=== PATIENT | female | born 1985 | race Caucasian/White ===

== ENCOUNTER 2017-08-05 19:38 | Emergency (ER) | payer OTHER ==
--- NOTE | 2017-08-05 20:35 | UC ---
Complaint Female HPI - HPI Summary HPI Summary: 32 yo female with ext genital pain and dysuria x 1 days feels similar to when she had trich see denies vad d/c or itch no back or abd pain - History Of Current Complaint Chief Complaint: UCGU Stated Complaint: UTI Hx Obtained From: Patient Hx Last Menstrual Period: 07/12/17 Onset/Duration: Gradual Onset, Lasting Hours Timing: Constant Severity Initially: Moderate Severity Currently: Moderate Pain Intensity: 4 Pain Scale Used: 0-10 Numeric Character: Burning Aggravating Factor(s): Urination Associated Signs And Symptoms: Positive: Negative - Allergies/Home Medications Allergies/Adverse Reactions: Allergies Allergy/AdvReac Type Severity Reaction Status Date / Time Ibuprofen Allergy Severe Anaphylatic Verified 08/05/17 19:54 Shock Naproxen Allergy Severe Anaphylatic Verified 08/05/17 19:54 Shock Home Medications: Home Medications Multiple Vitamins W/ Minerals [Multivitamin Adults] 1 tab PO DAILY 08/05/17 [ History Confirmed 08/05/17] Verapamil TAB* [Calan TAB*] 80 mg PO DAILY 08/05/17 [History Confirmed 08/05/17] tiZANidine TAB* [Zanaflex TAB*] 2 mg PO DAILY 08/05/17 [History Confirmed ] PMH/Surg Hx/FS Hx/Imm Hx Previously Healthy: Yes Neurological History: Migraine - Surgical History Surgical History: Yes Surgery Procedure, Year, and Place: TONSILLECTOMY, 2 RIGHT FOOT SURGERIES, RIGHT KNEE SURGERY, BREAST REDUCTION, CANCEROUS CELLS REMOVED FROM CERVIX - Social History Alcohol Use: Occasionally Substance Use Type: None Smoking Status (MU): Never Smoked Tobacco Review of Systems Constitutional: Negative Skin: Negative Eyes: Negative ENT: Negative Respiratory: Negative Cardiovascular: Negative Gastrointestinal: Negative Genitourinary: Dysuria, Vaginal/Penile Burning Motor: Negative Neurovascular: Negative Musculoskeletal: Negative Neurological: Negative Psychological: Negative Is Patient Immunocompromised?: No All Other Systems Reviewed And Are Negative: Yes Physical Exam Triage Information Reviewed: Yes Appearance: Well-Appearing, No Pain Distress, Well-Nourished Vital Signs: Initial Vital Signs Temp 99.0 F 08/05/17 19:49 Pulse 85 08/05/17 19:49 Resp 16 08/05/17 19:49 BP 135/79 08/05/17 19:49 Pulse Ox 100 08/05/17 19:49 Vital Signs Reviewed: Yes Eyes: Positive: Conjunctiva Clear ENT: Positive: Hearing grossly normal. Negative: Nasal drainage, TMs normal, Trismus, Muffled voice, Hoarse voice Respiratory: Positive: Lungs clear, Normal breath sounds, No respiratory distress, No accessory muscle use Cardiovascular: Positive: RRR, No Murmur Abdomen Description: Positive: Nontender, No Organomegaly, Other: - ext genitalia-normal, vagina-scant whitish d/c, cx- not inflammed no CMT, uterus not tender, adenexa not tender. Negative: CVA Tenderness (R), CVA Tenderness (L ), Distended, Guarding Bowel Sounds: Positive: Present Musculoskeletal: Positive: ROM Intact, No Edema Neurological: Positive: Alert Psychological Exam: Normal Skin Exam: Normal Complaint Female Dx - Differential Dx/Diagnosis Provider Diagnoses: dysuria of uncertain cause Discharge - Discharge Plan Condition: Stable Disposition: HOME Prescriptions: Fluconazole 150 MG (NF) [Diflucan 150 mg (NF)] 150 mg PO ONCE #1 tab Metronidazole [Flagyl 500 MG TAB] 500 mg PO BID #14 tab Phenazopyridine TAB* [Pyridium TAB*] 100 mg PO TID #6 tab Patient Education Materials: Dysuria (ED) Referrals: No Primary Care Phys,NOPCP [Primary Care Provider] - Additional Instructions: I am unsure of the cause of your symptoms tests are pending recheck for new or worsening symptoms see your daycare assistant next week if not better
[2017-08-05] MEDS ORDERED: metroNIDAZOLE TAB* 250 MG PO ONE (21:05)
[2017-08-05] MEDS ORDERED: Phenazopyridine TAB* 100 MG PO ONE (21:06)
== END 2017-08-05 21:29 | disposition home or self-care (01) ==
LOC: UCEAST 19:38
DX: R30.0 Dysuria (principal); Z72.89 Other problems related to lifestyle
CPT/HCPCS: 81003; 81025; 87480; 87491; 87510; 87591; 87661; 99203; A9270-GY; G0463

== ENCOUNTER 2017-09-19 17:28 | Emergency (ER) | payer OTHER ==
[2017-09-19 17:44] VITALS: BP 138/77
--- NOTE | 2017-09-19 17:47 | UC ---
Palpitation/Dysrhythmia HP - HPI Summary HPI Summary: YESTERDAY AFTERNOON WHILE LAYING ON THE COUCH HAD SUDDEN ONSET OF RACING HEART BEAT AND TIGHT BAND LIKE CHEST PAIN. "FELT LIKE SOMEONE WAS STANDING ON MY CHEST ". PALPITATIONS LASTED ABOUT 30 MINUTEES. CP LASTED ABOUT AN HOUR. TODAY FEELS GENERAL SENSE OF MALAISE AND PERSISTENT SLIGHT DISCOMFORT IN HER CHEST. ALSOI REPORTS ABOUT A WEEK OF LEFT FLANK/SIDE PAIN. TODAY HAD ONSET OF BRBPR. NO PAIN. TAKES A MINIMUM OF 6 EXCEDRIN TABS PER DAY FOR MIGRAINES AND HAS DONE THIS FOR YEARS. DENIES, SOB, NAUSEA, SWEATS. - History of Current Complaint Chief Complaint: UCCardiac Stated Complaint: RACING HEART,BACK,ABD PAIN,BLOOD IN STOOL Time Seen by Provider: 09/19/17 17:42 Hx Obtained From: Patient Hx Last Menstrual Period: 09/11/17 Onset/Duration: Sudden Onset, Lasting Hours, Still Present Severity Initially: Moderate Severity Currently: Moderate Pain Intensity: 6 Pain Scale Used: 0-10 Numeric Character: Fast Aggravating Factor(s): Nothing Associated Signs & Symptoms: Positive: Chest Pain. Negative: Lightheadedness, Dizzy, Syncope, Shortness of Breath, Diaphoresis, Nausea - Allergy/Home Medications Allergies/Adverse Reactions: Allergies Allergy/AdvReac Type Severity Reaction Status Date / Time naproxen Allergy Severe ANAPHYLAXIS Verified 09/19/17 17:45 ibuprofen Allergy ANAPHYLAXIS Verified 09/19/17 17:45 PMH/Surg Hx/FS Hx/Imm Hx Previously Healthy: Yes Neurological History: Migraine Cancer History: Cervical Cancer - Surgical History Surgical History: Yes Surgery Procedure, Year, and Place: TONSILLECTOMY, 2 RIGHT FOOT SURGERIES, RIGHT KNEE SURGERY, BREAST REDUCTION, CANCEROUS CELLS REMOVED FROM CERVIX - Family History Known Family History: Positive: Cardiac Disease, Hypertension, Diabetes - Social History Alcohol Use: Occasionally Substance Use Type: None Smoking Status (MU): Never Smoked Tobacco Review of Systems Constitutional: Other - MALAISE Respiratory: Negative Cardiovascular: Palpitations, Chest Pain Gastrointestinal: Negative All Other Systems Reviewed And Are Negative: Yes Physical Exam Triage Information Reviewed: Yes Appearance: Well-Appearing, No Pain Distress, Well-Nourished Vital Signs: Initial Vital Signs Temp 98.6 F 09/19/17 17:38 Pulse 94 09/19/17 17:38 Resp 17 09/19/17 17:38 BP 138/77 09/19/17 17:38 Pulse Ox 96 09/19/17 17:38 Vital Signs Reviewed: Yes Eyes: Positive: Conjunctiva Clear ENT: Positive: Hearing grossly normal Neck: Positive: Supple Respiratory Exam: Normal Cardiovascular Exam: Normal Abdomen Description: Positive: Soft Musculoskeletal: Positive: No Edema Neurological: Positive: Alert Psychological: Positive: Age Appropriate Behavior Skin: Negative: rashes Diagnostics - EKG Cardiac Rate: NL - 88 BPM Cardiac Rhythm: Sinus: Normal Ectopy: None ST Segment: Normal Palpitations Course/Dx - Course Course Of Treatment: TO [facility] BY PRIVATE CAR. PT OFFERED TRANSPORT BY AMBULANCE BUT DECLINES. ADVISED THAT BY NOT TRAVELING IN A MONITORED SETTING SHE COULD BE RISKING WORSENING OF HER CONDITION THAT COULD POSE A THREAT TO HER LIFE, HEALTH AND MEDICAL SAFETY. SHE VERBALIZES UNDERSTANDING AND CONTINUES TO DECLINE AMBULANCE TRANSFER. - Differential Dx/Diagnosis Provider Diagnoses: 1. PALPITATIONS/CHEST PAIN. 2. BRBPR Discharge - Discharge Plan Condition: Stable Disposition: OTHER Discharge Disposition Comment: TO [facility] BY PRIVATE CAR Patient Education Materials: Chest Pain (ED), Heart Palpitations (ED), Rectal Bleeding (ED) Referrals: Joe JAIN,Tova Cadet [Primary Care Provider] - If Needed Additional Instructions: GO DIRECTLY TO THE [facility] FROM HERE. YOU HAVE DECLINED AMBULANCE TRANSFER. BE ADVISED THAT BY NOT TRAVELING IN A MONITORED SETTING YOU COULD BE RISKING WORSENING OF YOUR CONDITION THAT COULD POSE A THREAT TO YOUR LIFE, HEALTH AND MEDICAL SAFETY.
== END 2017-09-19 18:10 ==
LOC: UCEAST 17:28
DX: R00.2 Palpitations (principal); R07.9 Chest pain, unspecified; K62.5 Hemorrhage of anus and rectum; Z85.41 Personal history of malignant neoplasm of cervix uteri
CPT/HCPCS: 93005; 99201; G0463

== ENCOUNTER 2017-09-19 18:27 | Emergency (ER) | payer OTHER ==
[2017-09-19 20:02] LABS: ABS Basophils 0.2 10^3/ul (0-0.2); ABS Eosinophils 0 10^3/ul (0-0.6); ABS Lymphocytes 3.2 10^3/ul (1.0-4.8); ABS Monocytes 0.6 10^3/ul (0-0.8); ABS Neutrophils 8.5 10^3/ul (1.5-7.7); ABS Nucleated RBC 0 10^3/ul; Eosinophil % 0.3 % (0-6); Hematocrit 39 % (35-47); Hemoglobin 13.1 g/dl (12.0-16.0); Lymphocyte % 25.4 % (25-47); Mean Corpuscular HGB Conc 33 g/dl (31-36); Mean Corpuscular Hemoglobin 29 pg (27-31); Mean Corpuscular Volume 88 fL (80-97); Mean Platelet Volume 7 um3 (7.4-10.4); Nucleated Red Blood Cells % 0; Platelet Count 385 10^3/ul (150-450); Red Blood Count 4.44 10^6/ul (4.0-5.4); Red Cell Distribution Width 13 % (10.5-15); White Blood Count 12.4 10^3/ul (3.5-10.8)
[2017-09-19 20:11] LABS: INR 0.89 (0.77-1.02)
[2017-09-19 20:13] LABS: EGFR Non-African American 93.3 (>60)
[2017-09-19 20:41] VITALS: BP 113/70
--- NOTE | 2017-09-19 21:02 | ED ---
Robin Oneal Gabriel, scribed for Karine Fall MD on 09/19/17 at 1940 . Complex/Multi-Sys Presentation - HPI Summary HPI Summary: This patient is a 32 year old F presenting to [facility] with a chief complaint of CP that occurred last night. She describes it as tightness and it was accompanied by difficulty breathing. The patient rates the pain 6/10 in severity. Patient reports general malaise and flank/lower back pain unrelated to CP. Additionally had she had bright red blood with BM today. Patient denies difficulty moving bowels. LNMP was the 24th. Pt was seen and sent from [facility]. - History Of Current Complaint Chief Complaint: EDGeneral Time Seen by Provider: 09/19/17 19:15 Hx Obtained From: Patient Onset/Duration: Lasting Days - 1, Still Present Timing: Constant Severity Currently: Mild Severity Initially: Mild Associated Signs And Symptoms: Positive: Other - general malaise, CP, trouble breathing, bright red blood with BM, and flank/lower back pain - Allergies/Home Medications Allergies/Adverse Reactions: Allergies Allergy/AdvReac Type Severity Reaction Status Date / Time naproxen Allergy Severe ANAPHYLAXIS Verified 09/19/17 17:45 ibuprofen Allergy ANAPHYLAXIS Verified 09/19/17 17:45 PMH/Surg Hx/FS Hx/Imm Hx Endocrine/Hematology History: Denies: Hx Sickle Cell Disease Neurological History: Reports: Hx Migraine - Cancer History Cancer Type, Location and Year: CANCEROUS CELLS REMOVED FROM CERVIX - Surgical History Surgery Procedure, Year, and Place: TONSILLECTOMY, 2 RIGHT FOOT SURGERIES, RIGHT KNEE SURGERY, BREAST REDUCTION, CANCEROUS CELLS REMOVED FROM CERVIX Infectious Disease History: No Infectious Disease History: Denies: Traveled Outside the [place] in Last 30 Days - Family History Known Family History: Positive: Cardiac Disease, Hypertension, Diabetes - Social History Alcohol Use: Occasionally Substance Use Type: Reports: None Smoking Status (MU): Never Smoked Tobacco Review of Systems Positive: Other - general malaise Positive: Chest Pain Positive: Other - trouble breathing Gastrointestinal: Negative - trouble moving bowels Positive: Other - blood with BM Positive: Other - flank/lower back pain All Other Systems Reviewed And Are Negative: Yes Physical Exam - Summary Physical Exam Summary: VITAL SIGNS: Reviewed. GENERAL: Patient is an obese female who is lying comfortable in the stretcher. Patient is not in any acute respiratory distress. HEAD AND FACE: No signs of trauma. No ecchymosis, hematomas or skull depressions. No sinus tenderness. EYES: PERRLA, EOMI x 2, No injected conjunctiva, no nystagmus. EARS: Hearing grossly intact. Ear canals and tympanic membranes are within normal limits. MOUTH: Oropharynx within normal limits. NECK: Supple, trachea is midline, no adenopathy, no JVD, no carotid bruit, no c- spine tenderness, neck with full ROM. CHEST: Symmetric, no tenderness at palpation LUNGS: Clear to auscultation bilaterally. No wheezing or crackles. CVS: Regular rate and rhythm, S1 and S2 present, no murmurs or gallops appreciated. ABDOMEN: Soft, non-tender. No signs of distention. No rebound no guarding, and no masses palpated. Bowel sounds are normal. EXTREMITIES: FROM in all major joints, no edema, no cyanosis or clubbing. NEURO: Alert and oriented x 3. No acute neurological deficits. Speech is normal and follows commands. SKIN: Dry and warm Rectal: performed with nurse as regulatory affairs coordinator. Small external hemorrhoids. No blood seen. Triage Information Reviewed: Yes Vital Signs On Initial Exam: Initial Vitals Temp Pulse Resp BP Pulse Ox 98.3 F 88 16 139/91 98 09/19/17 18:41 09/19/17 18:41 09/19/17 18:41 09/19/17 18:41 09/19/17 18:41 Vital Signs Reviewed: Yes Diagnostics - Vital Signs Vital Signs Temp Pulse Resp BP Pulse Ox 09/19/17 19:28 84 16 120/62 99 09/19/17 18:41 98.3 F 88 16 139/91 98 - Laboratory Result Diagrams: 09/19/17 19:50 09/19/17 19:50 Lab Statement: Any lab studies that have been ordered have been reviewed, and results considered in the medical decision making process. Complex Multi-Symp Course/Dx Assessment/Plan: This patient is a 32 year old F presenting to [facility] with a chief complaint of CP that occurred last night. She describes it as tightness and it was accompanied by difficulty breathing. The patient rates the pain 6/10 in severity. Patient reports general malaise and flank/lower back pain unrelated to CP. Additionally had she had bright red blood with BM today. Patient denies difficulty moving bowels. LNMP was the 24th. Pt was seen and sent from [facility]. Test results with no significant abnormalities. Dx hemorrhoids. Patient will be discharged with and follow up from PCP. The patient is agreeable with this plan. - Diagnoses Provider Diagnoses: Hemorrhoids Discharge - Discharge Plan Condition: Stable Disposition: HOME Patient Education Materials: Hemorrhoids (ED) Referrals: Joe JAIN,Tova Cadet [Primary Care Provider] - 3 Days Additional Instructions: Increase your fiber intake. Consider Metamucil. RETURN TO EMERGENCY DEPARTMENT FOR ANY NEW OR WORSENING SYMPTOMS The documentation as recorded by the Robin zhang Gabriel accurately reflects the service I personally performed and the decisions made by me, Karine Fall MD.
== END 2017-09-19 21:02 | disposition home or self-care (01) ==
LOC: ED 18:27
DX: K64.4 Residual hemorrhoidal skin tags (principal); K92.1 Melena; R07.9 Chest pain, unspecified; Z88.6 Allergy status to analgesic agent
CPT/HCPCS: 36415; 80053; 82140; 82150; 83735; 84702; 85025; 85610; 85730; 99282

== ENCOUNTER 2018-03-10 12:23 | Emergency (ER) | payer OTHER ==
[2018-03-10 13:17] VITALS: BP 122/79
--- NOTE | 2018-03-10 13:44 | UC ---
Ear Complaint HPI - HPI Summary HPI Summary: 32 y/o female presents to the urgent care c/o right ear pain x 1 month which is getting worse. Pt states pain has been on and off, but for the past 2 days it has been constant and associated w/ MIMS and mild decrease hearing. Pain is 8/10. Pt has not taking anything to alleviate symptoms. Pt denies fever, dizziness, tinnitus, SOB, chest pain, abdominal pain, N/V/D. - History of Current Complaint Chief Complaint: UCEar Stated Complaint: R EAR PAIN Time Seen by Provider: 03/10/18 13:29 Hx Obtained From: Patient Hx Last Menstrual Period: 03/07/18 ?: No Onset/Duration: Gradual Onset, Lasting Weeks - 4 weeks, Still Present, Worse Since - 2 days Severity Initially: Mild Severity Currently: Moderate Pain Intensity: 8 Pain Scale Used: 0-10 Numeric Aggravating Factors: Other - touch Alleviating Factors: OTC Meds Associated Signs/Symptoms: Positive: Hearing Loss, URI Symptoms - Allergies/Home Medications Allergies/Adverse Reactions: Allergies Allergy/AdvReac Type Severity Reaction Status Date / Time ibuprofen Allergy Severe ANAPHYLAXIS Verified 03/10/18 13:12 naproxen Allergy Severe ANAPHYLAXIS Verified 03/10/18 13:12 Home Medications: Home Medications Omeprazole CAP* [Prilosec CAP* 20 MG] 40 mg PO DAILY 03/10/18 [History Confirmed 03/10/18] PMH/Surg Hx/FS Hx/Imm Hx Previously Healthy: Yes Neurological History: Migraine - Surgical History Surgical History: Yes Surgery Procedure, Year, and Place: TONSILLECTOMY, 2 RIGHT FOOT SURGERIES, RIGHT KNEE SURGERY, BREAST REDUCTION, CANCEROUS CELLS REMOVED FROM CERVIX - Family History Known Family History: Positive: Cardiac Disease, Hypertension, Diabetes - Social History Occupation: Employed Full-time Lives: With Family Alcohol Use: Occasionally Substance Use Type: None Smoking Status (MU): Never Smoked Tobacco Review of Systems Constitutional: Negative Skin: Negative Eyes: Negative ENT: Ear Ache - RT ear pain w/ draiange, Nasal Discharge Respiratory: Negative Cardiovascular: Negative Gastrointestinal: Negative Genitourinary: Negative Motor: Negative Neurovascular: Negative Musculoskeletal: Negative Neurological: Headache Psychological: Negative Is Patient Immunocompromised?: No All Other Systems Reviewed And Are Negative: Yes Physical Exam - Summary Physical Exam Summary: Vital signs: reviewed General: well developed, well nourished female sitting in the examining table w/ o any apparent distress Skin: [place], warm and dry, no evidence of atopic dermatitis, psoriasis, seborrhea. HEENT: -Head: atraumatic, non tender; no scalp dermatitis. -Eyes: sclera and conjunctiva clear, PERRLA, EOMI -Ears: no pre- or postauricular lymphadenopathy or erythema; RT external ear canal with erythema and yellowish purulent discharge, pinna tenderness on palpation, Rt TM injected w/ erythema and yellowish discharge. LF external ear canal clear and LF TM WNL. TMs normal w/out bulging or retraction. Good light reflex. No fluid level, vesicles, or bullae. No perforation. -Nose/Face: erythematous and edematous nasal mucosa with clear rhinorrhea, no frontal or maxillary sinus tender to palpation. -Mouth/Throat: Mucous membrane moist, posterior pharynx clear, no erythema or exudates. Neck: supple, FROM, nontender, no lymphadenopathy, no meningismus. Chest: Clear to auscultation, normal breath sounds Abd: soft, Bowel sounds active, Nontender. Back: no spinal or CVAT Neuro: A&O x4, GCS 15, no focal neuro deficits, normal behavior for age. Triage Information Reviewed: Yes Vital Signs: Initial Vital Signs Temp 97.6 F 03/10/18 13:14 Pulse 80 03/10/18 13:14 Resp 20 03/10/18 13:14 BP 122/79 03/10/18 13:14 Pulse Ox 98 03/10/18 13:14 Ear Complaint Course/Dx - Course Course Of Treatment: 32 y/o female presents to the urgent care c/o right ear pain x 1 month which is getting worse. Pt states pain has been on and off, but for the past 2 days it has been constant and associated w/ MIMS and mild decrease hearing. Pain is 8/10. Pt has not taking anything to alleviate symptoms. Pt denies fever, dizziness, tinnitus, SOB, chest pain, abdominal pain, N/V/D.Hx obtained. pt w/ Rt acute otitis externa and media on examination. Pt with a left otitis externa on examination. Pt Rx Cortisporin otic drops and Amoxicillin PO . Advised to take Tyelenol PO OTC for pain. If symptoms do not improve or worsen to return to the urgent care or f/u with PCP or ENT DR Lemons for further management. Pt understood and agreed with D/C instructions. - Differential Dx/Diagnosis Differential Diagnosis/HQI/PQRI: Cerumen Impaction, Otitis Externa, Otitis Media , Perforated TM, URI Provider Diagnoses: 1- RT acute otitis externa and media. 2- otalgia Discharge - Sign-Out/Discharge Documenting (check all that apply): Patient Departure - D/c home All imaging exams completed and their final reports reviewed: No Studies - Discharge Plan Condition: Stable Disposition: HOME Prescriptions: Amoxicillin PO (*) [Amoxicillin 875 MG (*)] 875 mg PO BID #20 tab Neomyc/Polym/HC 1% OTIC SUSP* [Cortisporin Otic Susp 1%*] 4 drop RIGHT EAR TID # 1 btl Patient Education Materials: Ear Infection (ED) Referrals: Santos Lemons MD [Medical Doctor] - 1 Week Joe JAIN,Tova Cadet [Primary Care Provider] - 3 Days Additional Instructions: 1-Please apply otic antibiotic on your Rt ear as directed. Take Amoxicillin PO as directed to alleviate otitis media. 2-Take Tylenol PO q6-8hrs prn for pain. 3-If symptoms do not improve or worsen please f/u with your PCP or ENT Dr Lemons for further management. - Billing Disposition and Condition Condition: STABLE Disposition: Home
--- NOTE | 2018-03-11 12:55 | UC ---
- Progress Note Progress Note: patient called she forgot to ask for a diflucan when she was at her visit yesterday---rx sent in for patient-- Discharge - Sign-Out/Discharge Documenting (check all that apply): Post-Discharge Follow Up All imaging exams completed and their final reports reviewed: No Studies - Discharge Plan Condition: Stable Disposition: HOME Prescriptions: Amoxicillin PO (*) [Amoxicillin 875 MG (*)] 875 mg PO BID #20 tab Fluconazole [Diflucan 150 MG (NF)] 150 mg PO ONCE #2 tab Neomyc/Polym/HC 1% OTIC SUSP* [Cortisporin Otic Susp 1%*] 4 drop RIGHT EAR TID # 1 btl Patient Education Materials: Ear Infection (ED) Referrals: Santos Lemons MD [Medical Doctor] - 1 Week Joe JAIN,Tova Cadet [Primary Care Provider] - 3 Days Additional Instructions: 1-Please apply otic antibiotic on your Rt ear as directed. Take Amoxicillin PO as directed to alleviate otitis media. 2-Take Tylenol PO q6-8hrs prn for pain. 3-If symptoms do not improve or worsen please f/u with your PCP or ENT Dr Lemons for further management. - Billing Disposition and Condition Condition: STABLE Disposition: Home
== END 2018-03-10 14:31 | disposition home or self-care (01) ==
LOC: UCEAST 12:23
DX: H60.91 Unspecified otitis externa, right ear (principal); H66.91 Otitis media, unspecified, right ear; H92.01 Otalgia, right ear; J34.89 Other specified disorders of nose and nasal sinuses; Z88.6 Allergy status to analgesic agent
CPT/HCPCS: 99212; G0463

== ENCOUNTER 2018-07-19 15:43 | Emergency (ER) | payer OTHER ==
[2018-07-19 17:22] VITALS: BP 142/90
--- NOTE | 2018-07-19 17:28 | UC ---
Throat Pain/Nasal Alireza HPI - HPI Summary HPI Summary: One week of cough, sore throat, gibson, sinus pain. did not get flu shot. exposure to strep and flu. nonsmoker. - History of Current Complaint Chief Complaint: UCGeneralIllness Stated Complaint: SORE THROAT Time Seen by Provider: 07/19/18 17:27 Hx Obtained From: Patient Hx Last Menstrual Period: 06/19/2018 Onset/Duration: Gradual Onset Pain Intensity: 8 Pain Scale Used: 0-10 Numeric Cough: Nonproductive Associated Signs & Symptoms: Positive: Sinus Discomfort, Nasal Discharge, Fever. Negative: Wheezing, Vomiting, Rash - Allergies/Home Medications Allergies/Adverse Reactions: Allergies Allergy/AdvReac Type Severity Reaction Status Date / Time ibuprofen Allergy Severe ANAPHYLAXIS Verified 07/19/18 17:13 naproxen Allergy Severe ANAPHYLAXIS Verified 07/19/18 17:13 PMH/Surg Hx/FS Hx/Imm Hx Previously Healthy: Yes - Surgical History Surgical History: Yes Surgery Procedure, Year, and Place: TONSILLECTOMY, 2 RIGHT FOOT SURGERIES, RIGHT KNEE SURGERY, BREAST REDUCTION, CANCEROUS CELLS REMOVED FROM CERVIX - Family History Known Family History: Positive: Cardiac Disease, Hypertension, Diabetes - Social History Alcohol Use: Occasionally Substance Use Type: None Smoking Status (MU): Never Smoked Tobacco - Immunization History Most Recent Tetanus Shot: UTD Review of Systems All Other Systems Reviewed And Are Negative: Yes Constitutional: Positive: Fever Skin: Negative: Rash ENT: Positive: Sore Throat, Ear Ache, Nasal Discharge, Sinus Congestion, Sinus Pain/Tenderness. Negative: Dental Pain Respiratory: Positive: Cough. Negative: Shortness Of Breath Cardiovascular: Positive: Negative Gastrointestinal: Negative: Vomiting, Diarrhea Neurological: Negative: Headache Physical Exam Triage Information Reviewed: Yes Appearance: Well-Appearing Vital Signs: Initial Vital Signs Temp 98.5 F 07/19/18 17:16 Pulse 91 07/19/18 17:16 Resp 18 07/19/18 17:16 BP 142/90 07/19/18 17:16 Pulse Ox 99 07/19/18 17:16 Vital Signs Reviewed: Yes Eyes: Positive: Conjunctiva Clear ENT: Positive: Pharyngeal erythema, TMs normal, Uvula midline. Negative: Sinus tenderness Neck: Positive: Supple, Nontender, No Lymphadenopathy Respiratory Exam: Normal Respiratory: Positive: No respiratory distress, Other: - +coughing during visit. Negative: Crackles, Rhonchi, Stridor, Wheezing Cardiovascular Exam: Normal Neurological: Positive: Alert, Fatigued Throat Pain/Nasal Course/Dx - Course Assessment/Plan: 1 wk cough and other URI symptoms. RAPid strep/rapid flu both neg. viral bronchitis dx'd and in no resp. distress. vitals good. - Differential Dx/Diagnosis Differential Diagnosis/HQI/PQRI: Sinusitis, Tonsillitis, URI Provider Diagnosis: Viral bronchitis Discharge - Sign-Out/Discharge Documenting (check all that apply): Patient Departure All imaging exams completed and their final reports reviewed: No Studies - Discharge Plan Condition: Good Disposition: HOME Prescriptions: Benzonatate CAP* [Tessalon 100 MG CAP*] 100 mg PO TID #15 cap Patient Education Materials: Acute Bronchitis (ED) Forms: *Work Release Referrals: Joe JAIN,Tova Cadet [Primary Care Provider] - Additional Instructions: If worsening please follow up with your primary care. - Billing Disposition and Condition Condition: GOOD Disposition: Home
[2018-07-19] MEDS ORDERED: Benzonatate CAP* 100 MG PO ONE (18:11)
== END 2018-07-19 18:16 | disposition home or self-care (01) ==
LOC: UCEAST 15:43
DX: J20.8 Acute bronchitis due to other specified organisms (principal); Z88.6 Allergy status to analgesic agent; Z90.89 Acquired absence of other organs
CPT/HCPCS: 87651; 99212; A9270-GY; G0463

== ENCOUNTER 2018-07-22 10:46 | Emergency (ER) | payer OTHER ==
[2018-07-22 12:18] VITALS: BP 136/86
--- NOTE | 2018-07-22 12:20 | UC ---
Throat Pain/Nasal Alireza HPI - HPI Summary HPI Summary: 33 yo female presents with chest congestion and cough for 1.5 weeks. She tells me that she was seen a few days ago and dx'd with bronchitis and given tessalon. Since that time she has developed worsening cough and feels short of breath with some right sided "lung pain" with coughing. Also has sinus pain/ pressure/congestion. Has felt feverish, but has not taken her temperature. Says that she has had "walking PNA" twice in the past and this feels the same. Denies sore throat, chest pain, n/v, rash. - History of Current Complaint Chief Complaint: UCRespiratory Stated Complaint: CONGESTION,SORE THROAT Time Seen by Provider: 07/22/18 12:20 Hx Obtained From: Patient Hx Last Menstrual Period: 07/07/18 Onset/Duration: Gradual Onset Severity: Moderate Pain Intensity: 8 Pain Scale Used: 0-10 Numeric Cough: Productive - Allergies/Home Medications Allergies/Adverse Reactions: Allergies Allergy/AdvReac Type Severity Reaction Status Date / Time ibuprofen Allergy Severe ANAPHYLAXIS Verified 07/19/18 17:13 naproxen Allergy Severe ANAPHYLAXIS Verified 07/19/18 17:13 PMH/Surg Hx/FS Hx/Imm Hx Cardiovascular History: Hypertension - Surgical History Surgical History: Yes Surgery Procedure, Year, and Place: TONSILLECTOMY, 2 RIGHT FOOT SURGERIES, RIGHT KNEE SURGERY, BREAST REDUCTION, CANCEROUS CELLS REMOVED FROM CERVIX - Family History Known Family History: Positive: Cardiac Disease, Hypertension, Diabetes - Social History Occupation: Employed Full-time Lives: With Family Alcohol Use: Occasionally Substance Use Type: None Smoking Status (MU): Never Smoked Tobacco - Immunization History Most Recent Tetanus Shot: UTD Review of Systems All Other Systems Reviewed And Are Negative: Yes Constitutional: Positive: Fever Skin: Positive: Negative Eyes: Positive: Negative ENT: Positive: Nasal Discharge, Sinus Congestion, Sinus Pain/Tenderness Respiratory: Positive: Cough Cardiovascular: Positive: Negative Gastrointestinal: Positive: Negative Neurovascular: Positive: Negative Neurological: Positive: Negative Psychological: Positive: Negative Physical Exam - Summary Physical Exam Summary: GENERAL: NAD. WDWN. No pain distress. SKIN: No rashes, sores, lesions, or open wounds. HEENT: Head: AT/NC Eyes: Conjunctiva clear without inflammation or discharge. Ears: Hearing grossly normal. TMs intact, no bulging, erythema, or edema. Nose: Nasal mucosa mildly swollen and erythematous with yellow discharge. TTP maxillary and frontal sinus. Positive post nasal drip Throat: Posterior oropharynx without exudates or erythema. Uvula midline. NECK: Supple. Nontender. No lymphadenopathy. CHEST: Decreased breath sounds RLL with crackles. No accessory muscle use. Breathing comfortably and in no distress. CV: RRR. Without m/r/g. Pulses intact. Cap refill <2seconds NEURO: Alert. PSYCH: Age appropriate behavior. Triage Information Reviewed: Yes Vital Signs: Initial Vital Signs Temp 97.8 F 07/22/18 12:15 Pulse 100 07/22/18 12:15 Resp 20 07/22/18 12:15 BP 136/86 07/22/18 12:15 Pulse Ox 97 07/22/18 12:15 Vital Signs Reviewed: Yes Throat Pain/Nasal Course/Dx - Course Course Of Treatment: Pt declined CXR today. Will treat as PNA given her worsening symptoms and exam today. - Differential Dx/Diagnosis Provider Diagnosis: PNA (pneumonia), Sinusitis Discharge - Sign-Out/Discharge Documenting (check all that apply): Patient Departure All imaging exams completed and their final reports reviewed: No Studies - Discharge Plan Condition: Stable Disposition: HOME Prescriptions: Albuterol HFA INHALER* [Ventolin HFA Inhaler*] 1 - 2 puff INH Q6H PRN #1 mdi PRN Reason: Cough Amoxicillin/Clavulanate TAB* [Augmentin TAB 875*] 875 mg PO BID #20 tab Fluconazole 150 MG TAB* [Diflucan 150 MG TAB*] 150 mg PO DAILY #1 tablet Patient Education Materials: Community Acquired Pneumonia (ED) Forms: *Work Release Referrals: Joe JAIN,Tova Cadet [Primary Care Provider] - Additional Instructions: If you develop a fever, shortness of breath, chest pain, new or worsening symptoms - please call your PCP or go to the ED. - Billing Disposition and Condition Condition: STABLE Disposition: Home
== END 2018-07-22 12:37 | disposition home or self-care (01) ==
LOC: UCEAST 10:46
DX: J18.9 Pneumonia, unspecified organism (principal); J32.9 Chronic sinusitis, unspecified; I10 Essential (primary) hypertension; Z88.6 Allergy status to analgesic agent
CPT/HCPCS: 99212; G0463

== ENCOUNTER 2018-10-12 12:38 | Emergency (ER) | payer OTHER ==
[2018-10-12 12:47] VITALS: BP 144/83
--- NOTE | 2018-10-12 13:49 | UC ---
FLU HPI - HPI Summary HPI Summary: 33-year-old female presents with 4 day history of nasal congestion, nasal drainage, sore throat, chest tightness, mild shortness of breath, and occasionally productive cough. Associated with feeling "hot and cold". Reports has had 3 episodes of "walking pneumonia" in the past. Most recently was diagnosed with this in July of this year at this facility however no x- ray was done at that time. States her symptoms are similar to her previous illness. She has been using the albuterol inhaler that was prescribed to her in July with little improvement in her symptoms. Denies fever, ear pain, dysphagia, chest pain, abdominal pain, nausea, vomiting, or diarrhea. - History of Current Complaint Chief Complaint: UCGeneralIllness Stated Complaint: CONGESTION SORE THROAT Time Seen by Provider: 10/12/18 13:31 Hx Obtained From: Patient Hx Last Menstrual Period: 08/30/18 Pain Intensity: 5 - Allergy/Home Medications Allergies/Adverse Reactions: Allergies Allergy/AdvReac Type Severity Reaction Status Date / Time ibuprofen Allergy Severe ANAPHYLAXIS Verified 10/12/18 12:47 naproxen Allergy Severe ANAPHYLAXIS Verified 10/12/18 12:47 PMH/Surg Hx/FS Hx/Imm Hx Previously Healthy: Yes Respiratory History: Pneumonia Neurological History: Migraine - Surgical History Surgical History: Yes Surgery Procedure, Year, and Place: TONSILLECTOMY, 2 RIGHT FOOT SURGERIES, RIGHT KNEE SURGERY, BREAST REDUCTION, CANCEROUS CELLS REMOVED FROM CERVIX - Family History Known Family History: Positive: Cardiac Disease, Hypertension, Diabetes - Social History Occupation: Employed Full-time Lives: With Family Alcohol Use: Occasionally Substance Use Type: None Smoking Status (MU): Never Smoked Tobacco - Immunization History Most Recent Tetanus Shot: UTD Review of Systems All Other Systems Reviewed And Are Negative: Yes Constitutional: Positive: Chills. Negative: Fever Skin: Negative: Rash Eyes: Negative: Drainage, Eye Redness ENT: Positive: Sore Throat, Nasal Discharge, Sinus Congestion. Negative: Ear Ache, Sinus Pain/Tenderness Respiratory: Positive: Shortness Of Breath, Cough Cardiovascular: Negative: Palpitations, Chest Pain Gastrointestinal: Negative: Abdominal Pain, Vomiting, Diarrhea, Nausea Genitourinary: Positive: Negative Musculoskeletal: Positive: Negative Neurological: Positive: Negative Is Patient Immunocompromised?: No Physical Exam - Summary Physical Exam Summary: GENERAL APPEARANCE: Well developed, well nourished, alert and cooperative, and appears to be in no acute distress. EYES: Conjunctiva clear. No drainage. Vision is grossly intact. EARS: External auditory canals and tympanic membranes clear, hearing grossly intact. NOSE: Mild-moderate nasal congestion. No nasal discharge. THROAT: Pharyngeal erythema. Surgically absent tonsils. Uvula midline. NECK: Neck supple, non-tender without lymphadenopathy. CARDIAC: Normal S1 and S2. No S3, S4 or murmurs. Rhythm is regular. There is no peripheral edema, cyanosis or pallor. Extremities are warm and well perfused. Capillary refill is less than 2 seconds. Peripheral pulses intact. LUNGS: Clear to auscultation without rales, rhonchi, wheezing or diminished breath sounds. Non-productive cough. ABDOMEN: Positive bowel sounds. Soft, nondistended, nontender. No guarding or rebound. No masses or hepatosplenomegally. MUSKULOSKELETAL: ROM intact to all extremities. No joint erythema or tenderness. Normal muscular development. Normal gait. SKIN: Skin normal color, texture and turgor with no lesions or eruptions. Triage Information Reviewed: Yes Vital Signs: Initial Vital Signs Temp 98.9 F 10/12/18 12:44 Pulse 92 10/12/18 12:44 Resp 18 10/12/18 12:44 BP 144/83 10/12/18 12:44 Pulse Ox 99 10/12/18 12:44 Vital Signs Reviewed: Yes Diagnostics - Radiology No standard instances Radiology Interpretation Completed By: Radiologist Summary of Radiographic Findings: Order Information: CHEST PA [facility]. Accession Number: [id number]. CPT: 77368. HISTORY: cough, shortness of breath. COMPARISONS: None relevant available at the time of dictation. VIEWS: 4: Frontal dual-energy and lateral views of the chest. FINDINGS: CARDIOMEDIASTINAL SILHOUETTE: The cardiomediastinal silhouette is normal. LALY : The laly are normal. PLEURA: The costophrenic angles are sharp. No pleural abnormalities are noted. LUNG PARENCHYMA: The lungs are clear. ABDOMEN: The upper abdomen is clear. There is no subphrenic gas. BONES AND SOFT TISSUES: No bone or soft tissue abnormalities are noted. OTHER: None. IMPRESSION: NO ACTIVE CARDIOPULMONARY DISEASE. Flu Course/Dx - Course Course Of Treatment: 33-year-old female presents with 4 day history of nasal congestion, nasal drainage, sore throat, chest tightness, mild shortness of breath, and occasionally productive cough. Associated with feeling "hot and cold". Reports has had 3 episodes of "walking pneumonia" in the past. Most recently was diagnosed with this in July of this year at this facility however no x- ray was done at that time. States her symptoms are similar to her previous illness. She has been using the albuterol inhaler that was prescribed to her in July with little improvement in her symptoms. Denies fever, ear pain, dysphagia, chest pain, abdominal pain, nausea, vomiting, or diarrhea. Afebrile. Hypertensive otherwise vital signs stable. Exam was remarkable for mild to moderate nasal congestion, pharyngeal erythema, clear bilateral breath sounds, and a nonproductive cough. Chest x-ray was negative. Rapid flu was negative. Recommending symptomatically treatment for a viral URI. She is to follow-up with her primary care provider in 5 days if symptoms do not improve. Anticipatory guidance and warning symptoms reviewed with patient. Verbalizes understanding and agrees with plan of care. - Differential Dx/Diagnosis Differential Diagnosis/HQI/PQRI: Bronchitis, Influenza, Pneumonia, Upper Respiratory Infection Provider Diagnosis: Viral URI with cough Discharge - Sign-Out/Discharge Documenting (check all that apply): Patient Departure All imaging exams completed and their final reports reviewed: No Studies - Discharge Plan Condition: Stable Disposition: HOME Patient Education Materials: Upper Respiratory Infection (ED) Referrals: Joe JAIN,Tova Cadet [Primary Care Provider] - Additional Instructions: Your history and exam are consistent with a viral upper respiratory infection. Viral infections do not respond to antibiotics and are limited to the treatment of symptoms. Viral infections typically run their course in 7-10 days. Drink plenty of fluids. Use a saline rinse kit such as Neti Pot or NeilMed at least twice a day to help thin secretions and promote drainage of the sinuses. Use fluticasone (Flonase) nasal spray 2 sprays each nostril once daily. Try an over the counter decongestant such as Sudafed according to directions as needed for nasal congestion. Use your Tessalon Perles or Robitussin DM as directed for the cough. Take over the counter acetaminophen (Tylenol) or ibuprofen (Advil, Motrin) according to directions as needed for pain or fever. Use salt water gargles several times a day if you have a sore throat. You may also use Chloraseptic spray or Cepacol lonzenges according to directions which contain a numbing medication and can provide some temporary relief from your sore throat. Follow up with your primary care provider in 5 days if symptoms persist. Seek immediate medical attention in the emergency room if you have fever greater than 100.5 F despite taking acetaminophen or ibuprofen, have chest pain , difficulty breathing, are unable to swallow, or have any worsening of symptoms. - Billing Disposition and Condition Condition: STABLE Disposition: Home
[2018-10-12 14:14] LABS: Influenza A Molecular NEGATIVE (Negative); Influenza B Molecular NEGATIVE (Negative)
== END 2018-10-12 15:00 | disposition home or self-care (01) ==
LOC: UCEAST 12:38
DX: J06.9 Acute upper respiratory infection, unspecified (principal); R05 Cough; Z87.01 Personal history of pneumonia (recurrent); Z88.8 Allergy status to other drugs, medicaments and biological substances
CPT/HCPCS: 71046; 99211; G0463

== ENCOUNTER 2019-06-27 19:33 | Emergency (ER) | payer BC, OTHER ==
--- NOTE | 2019-06-27 19:41 | UC ---
Respiratory Complaint HPI - HPI Summary HPI Summary: 33 yo female presents with 2 complaints; 1) For the last week she has been having URI symptoms consisting of an intermittently productive cough. She feels feverish at times, but has not taken her temperature. She states she had pneumonia last year and this feels the same. She denies sore throat, SOB, rash, chest pain. She mentions that she has been vomiting due to coughing so much. She mentions that she has been nauseous the last few days and is concerned for . Her LMP was 1 week ago, but was 2 days of spotting - which is unusual for her as she usually has 5-7 days of moderate bleeding. 2) She also mentions that she has had bright red blood during bowel movements. This has been happening for several years and she has had a colonoscopy and endoscopy and is followed by GI. She takes daily prilosec. Her concern today is that yesterday she had a small blood clot pass during a BM and this worried her. No abdominal pain or dark tarry stools. - History of Current Complaint Stated Complaint: URI, VOMITING Time Seen by Provider: 06/27/19 19:40 Hx Obtained From: Patient Hx Last Menstrual Period: 08/30/18 Onset/Duration: Gradual Onset Severity Initially: Moderate Severity Currently: Moderate Pain Intensity: 5 Pain Scale Used: 0-10 Numeric - Allergies/Home Medications Allergies/Adverse Reactions: Allergies Allergy/AdvReac Type Severity Reaction Status Date / Time ibuprofen Allergy Severe ANAPHYLAXIS Verified 06/27/19 19:52 naproxen Allergy Severe ANAPHYLAXIS Verified 06/27/19 19:52 Home Medications: Home Medications Phentermine HCl 1 cap PO DAILY 06/27/19 [History Confirmed 06/27/19] PMH/Surg Hx/FS Hx/Imm Hx Cardiovascular History: Hypertension - Surgical History Surgical History: Yes Surgery Procedure, Year, and Place: TONSILLECTOMY, 2 RIGHT FOOT SURGERIES, RIGHT KNEE SURGERY, BREAST REDUCTION, CANCEROUS CELLS REMOVED FROM CERVIX - Family History Known Family History: Positive: Cardiac Disease, Hypertension, Diabetes - Social History Occupation: Employed Full-time Lives: With Family Alcohol Use: Occasionally Substance Use Type: None Smoking Status (MU): Current Some Day Smoker Type: Cigarettes - Immunization History Most Recent Tetanus Shot: UTD Review of Systems All Other Systems Reviewed And Are Negative: No Constitutional: Positive: Fatigue, Other - Body aches Skin: Positive: Negative Eyes: Positive: Negative ENT: Positive: Negative Respiratory: Positive: Cough Cardiovascular: Positive: Negative Gastrointestinal: Positive: Nausea Genitourinary: Positive: Negative Neurovascular: Positive: Negative Neurological: Positive: Negative Psychological: Positive: Negative Physical Exam - Summary Physical Exam Summary: GENERAL: NAD. WDWN. No pain distress. SKIN: No rashes, sores, or open wounds. HEENT: Head: AT/NC Eyes: PERRLA. EOM intact. Conjunctiva clear without inflammation or discharge. Ears: Hearing grossly normal. TMs intact, no bulging, erythema, or edema. Nose: Nasal mucosa pink and moist. NTTP maxillary and frontal sinus. Throat: Posterior oropharynx without exudates, erythema, or tonsillar enlargement. Uvula midline. NECK: Supple. Nontender. No lymphadenopathy. CHEST: Mild wheezing throughout. No accessory muscle use. Breathing comfortably and in no distress. CV: RRR. Pulses intact. Brisk cap refill. ABDOMEN: Soft. NTTP. No distention or guarding. No CVA tenderness. Bowel sounds present --- RECTAL: Non-thrombosed hemorrhoid at the 9 o'clock position mildly TTP. No active bleeding. No stool in vault. NEURO: Alert. PSYCH: Age appropriate behavior. Triage Information Reviewed: Yes Vital Signs: Vital Signs: Temp Pulse Resp BP Pulse Ox 99.2 F 107 18 133/72 98 06/27/19 19:55 06/27/19 19:55 06/27/19 19:55 06/27/19 19:55 06/27/19 19:55 Laboratory Tests 06/27/19 06/27/19 06/27/19 20:09 20:16 20:20 POC Urine Color Yellow POC Urine Clarity Clear POC Urine pH 6.5 POC Ur Specif [place] 1.025 POC Urine Protein Negative POC Ur Glucose (UA) Negative POC Urine Ketones Negative POC Urine Blood Negative POC Urine Nitrite Negative POC Urine Bilirubin Negative POC Urine Urobilinogen 0.2 POC U Leukocyte Esteras Negative POC Ur Test Negative Influenza A (Rapid) Negative Influenza B (Rapid) Negative Vital Signs Reviewed: Yes Respiratory Course/Dx - Course Course Of Treatment: POC flu negative. UA and urine negative. Pt declined CXR today stating that she "has pneumonia". Suspect bronchitis/URI - discussed viral vs bacterial causes and she prefers to be on anbx at this time. Regarding her bright red blood in stool - likely hemorrhoid source. She has seen GI multiple times in the past for this and general abdominal pain, but has not in about 2 years. Recommended she schedule an appt kenny - Differential Dx/Diagnosis Provider Diagnosis: Bronchitis, Hemorrhoid Discharge ED - Sign-Out/Discharge Documenting (check all that apply): Patient Departure All imaging exams completed and their final reports reviewed: No Studies - Discharge Plan Condition: Stable Disposition: HOME Prescriptions: Albuterol HFA INHALER* [Ventolin HFA Inhaler*] 1 puff INH Q6H PRN #1 mdi PRN Reason: Sob/Wheezing Amoxicillin/Clavulanate TAB* [Augmentin TAB 875*] 875 mg PO BID #14 tab Hemorrhoidal OINT* [Preparation H*] 1 applic VT Q12H #1 tube Patient Education Materials: Hemorrhoids (ED), Acute Bronchitis (ED) Referrals: Joe JAIN,Tova Cadet [Primary Care Provider] - Miriam Carolina MD [Medical Doctor] - As Soon As Possible Additional Instructions: If you develop a fever, shortness of breath, chest pain, new or worsening symptoms - please call your PCP or go to the ED immediately. I recommend that you follow up with GI for further care of your blood in stool - Billing Disposition and Condition Condition: STABLE Disposition: Home - Attestation Statements Provider Attestation: Per institutional requirements, I have reviewed the chart, however, I was not consulted specifically or made aware of this patient by the midlevel provider. I did not personally evaluate, interact with , or disposition this patient.
[2019-06-27 20:02] VITALS: BP 133/72
[2019-06-27 20:21] LABS: Influenza A Molecular NEGATIVE (Negative); Influenza B Molecular NEGATIVE (Negative)
[2019-06-27] MEDS ORDERED: Amoxicillin/Clavulanate TAB* 875 MG PO ONE (20:42)
== END 2019-06-27 20:56 | disposition home or self-care (01) ==
LOC: UCEAST 19:33
DX: J40 Bronchitis, not specified as acute or chronic (principal); K64.9 Unspecified hemorrhoids; R11.0 Nausea; F17.210 Nicotine dependence, cigarettes, uncomplicated; I10 Essential (primary) hypertension; Z88.6 Allergy status to analgesic agent
CPT/HCPCS: 81003; 84702; 99212; A9270-GY; G0463

== ENCOUNTER 2019-09-29 14:11 | Emergency (ER) | payer BC ==
--- NOTE | 2019-09-29 16:17 | UC ---
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 have tested + for the flu in the past 2 weeks has hx of pneumonia uses a rescue inhaler prn - History of Current Complaint Chief Complaint: UCRespiratory Stated Complaint: CONGESTION,FEVER,SORE THROAT Time Seen by Provider: 09/29/19 15:24 Hx Obtained From: Patient Hx Last Menstrual Period: 08/30/18 Onset/Duration: Gradual Onset, Lasting Hours Timing: Constant Severity Initially: Moderate Severity Currently: Moderate Pain Intensity: 5 Pain Scale Used: 0-10 Numeric Character: Cough: Nonproductive Aggravating Factors: Exertion, Deep Breaths, Recumbent Position Alleviating Factors: Nothing Associated Signs And Symptoms: Positive: Fever, Chills, URI, Nasal Congestion, Sinus Discomfort - Allergies/Home Medications Allergies/Adverse Reactions: Allergies Allergy/AdvReac Type Severity Reaction Status Date / Time ibuprofen Allergy Severe ANAPHYLAXIS Verified 09/29/19 16:07 naproxen Allergy Severe ANAPHYLAXIS Verified 09/29/19 16:07 Home Medications: Home Medications Verapamil TAB* [Calan TAB*] 240 mg PO DAILY 08/05/17 [History Confirmed 06/27/19 ] tiZANidine TAB* [Zanaflex TAB*] 2 mg PO DAILY 08/05/17 [History Confirmed ] Albuterol HFA INHALER* [Ventolin HFA Inhaler*] 1 - 2 puff INH Q6H PRN #1 mdi 11/04 [Rx Confirmed 06/27/19] Oseltamivir CAP* [Tamiflu CAP*] 75 mg PO BID #10 cap 09/29/19 [Rx] Phenylephrine/Dm/Acetaminop/GG [Tylenol Cold-Flu Severe Caplet] 1 each PO Q12H PRN 09/29/19 [History Confirmed 09/29/19] PMH/Surg Hx/FS Hx/Imm Hx Previously Healthy: Yes Cardiovascular History: Hypertension Respiratory History: Pneumonia - Surgical History Surgical History: Yes Surgery Procedure, Year, and Place: TONSILLECTOMY, 2 RIGHT FOOT SURGERIES, RIGHT KNEE SURGERY, BREAST REDUCTION, CANCEROUS CELLS REMOVED FROM CERVIX - Family History Known Family History: Positive: Cardiac Disease, Hypertension, Diabetes - Social History Alcohol Use: Occasionally Substance Use Type: None Smoking Status (MU): Current Some Day Smoker Type: Cigarettes - Immunization History Most Recent Tetanus Shot: UTD Review of Systems All Other Systems Reviewed And Are Negative: Yes Constitutional: Positive: Fever, Chills, Fatigue Skin: Positive: Negative Eyes: Positive: Negative ENT: Positive: Sore Throat, Ear Ache, Nasal Discharge, Sinus Congestion, Sinus Pain/Tenderness Respiratory: Positive: Cough Cardiovascular: Positive: Negative Gastrointestinal: Positive: Diarrhea, Nausea Genitourinary: Positive: Negative, Vaginal/Penile Itching Neurovascular: Positive: Negative Musculoskeletal: Positive: Negative Neurological/Mental Status: Positive: Negative Psychological: Positive: Negative Physical Exam Triage Information Reviewed: Yes Appearance: Well-Appearing, No Pain Distress, Well-Nourished Vital Signs: Initial Vital Signs Temp 98.5 F 09/29/19 16:05 Pulse 87 09/29/19 16:05 Resp 18 09/29/19 16:05 Pulse Ox 98 09/29/19 16:05 Vital Signs Reviewed: Yes Eyes: Positive: Conjunctiva Clear ENT: Positive: Hearing grossly normal, Nasal congestion, Nasal drainage, Uvula midline. Negative: Tonsillar swelling, Hoarse voice, Dental tenderness, Sinus tenderness Dental Exam: Normal Neck: Positive: Supple, Nontender, No Lymphadenopathy Respiratory: Positive: Lungs clear, Normal breath sounds, No respiratory distress, No accessory muscle use Cardiovascular: Positive: RRR, No Murmur Abdomen Description: Positive: Nontender, No Organomegaly. Negative: CVA Tenderness (R), CVA Tenderness (L) Bowel Sounds: Positive: Present Musculoskeletal: Positive: ROM Intact, No Edema Neurological: Positive: Alert Psychological Exam: Normal Skin Exam: Normal Diagnostics - Laboratory Lab Results: influenza (-) Respiratory Course/Dx - Differential Dx/Diagnosis Provider Diagnosis: Influenza-like illness Discharge ED - Sign-Out/Discharge Documenting (check all that apply): Patient Departure All imaging exams completed and their final reports reviewed: No Studies - Discharge Plan Condition: Stable Disposition: HOME Prescriptions: Oseltamivir CAP* [Tamiflu CAP*] 75 mg PO BID #10 cap Patient Education Materials: Influenza (ED) Forms: *Work Release Referrals: Joe JAIN,Tova Cadet [Primary Care Provider] - 4 Days (if not better) Additional Instructions: Your flu test was negative we will treat you because of your symptoms and known work exposure - Billing Disposition and Condition Condition: STABLE Disposition: Home
[2019-09-29 16:18] LABS: Influenza A Molecular Negative (Negative); Influenza B Molecular Negative (Negative)
== END 2019-09-29 16:40 | disposition home or self-care (01) ==
LOC: UCEAST 14:11
DX: J02.9 Acute pharyngitis, unspecified (principal); H92.09 Otalgia, unspecified ear; I10 Essential (primary) hypertension; R50.9 Fever, unspecified; R53.83 Other fatigue; J34.89 Other specified disorders of nose and nasal sinuses; R05 Cough; R19.7 Diarrhea, unspecified; R11.0 Nausea; F17.210 Nicotine dependence, cigarettes, uncomplicated; Z88.6 Allergy status to analgesic agent; Z79.899 Other long term (current) drug therapy
CPT/HCPCS: 99212; G0463